=== PATIENT | female | born 1945 | race African-American/Black ===

== ENCOUNTER 2019-02-11 14:54 | Observation (INO) ==
[2019-02-11 16:15] LABS: Basophils # 0.1 10*3/uL (0.0-0.2); Basophils % 0.7 % (0.0-0.8); Eosinophils # 0.3 10*3/uL (0.0-0.87); Hematocrit 36.6 VOL% (35.7-47.0); Hemoglobin 10.6 GM/DL (12.0-16.0); Immature Granulocytes % 0.6 %; Immature Granulocytes Absolute 0.05 #; Lymphocytes # 2.9 10*3/uL (1.4-4.0); Lymphocytes % 32.7 % (21.3-54.2); Mean Corpuscular Volume 82.1 FL (87-102); Mean Platelet Volume 12.2 FL (9.6-12.0); Monocytes % 4.4 % (1.7-12.7); Neutrophils % 58.6 % (38.7-73.9); Platelet Count 190 T/CUMM (130-400); Red Blood Count 4.46 MC/CUMM (3.8-5.5); Red Cell Distribution Width 14.6 % (9.3-17.3); White Blood Count 8.8 T/CUMM (4-12)
[2019-02-11 16:41] LABS: Alanine Aminotransferase 14 U/L (13-56); Albumin 3.5 G/DL (3.4-5.0); Alkaline Phosphatase 142 U/L (45-117); Aspartate Amino Transferase 7 U/L (0-37); Bilirubin,Total < 0.39 MG/DL (0.2-1.0); Blood Urea Nitrogen 39 MG/DL (7-18); Calcium 8.5 MG/DL (8.5-10.1); Glucose 387 MG/DL (74-106); Osmolality,Calculated 297.8 MOS/KG (273-304); Total Protein 6.9 G/DL (6.4-8.3)
[2019-02-11] MEDS ORDERED: ASPIRIN 325 MG TABLET PO STA (18:15)
[2019-02-11] MEDS ORDERED: ONDANSETRON 4 MG/2 ML VIAL IV STA (18:15)
[2019-02-11] MEDS ORDERED: ALUM/MAG/SIMETH/LIDO VISC 1:1 30 ML BOTTLE PO STA (18:15)
[2019-02-11] MEDS ORDERED: INSULIN REGULAR 100 UNIT/ML SUBCUT STA (19:30)
[2019-02-11] MEDS ORDERED: DEXTROSE 50% 25 GM/50 ML SYRINGE IV PRN (20:48)
[2019-02-11] MEDS ORDERED: ZALEPLON 5 MG CAPSULE PO PRN (20:48)
[2019-02-11] MEDS ORDERED: ONDANSETRON 4 MG/2 ML VIAL IV PRN (20:48)
[2019-02-11] MEDS ORDERED: ACETAMINOPHEN 325 MG TABLET PO PRN (20:48)
[2019-02-11] MEDS ORDERED: GLUCAGON 1 MG VIAL IM PRN (20:48)
[2019-02-11] MEDS ORDERED: DOCUSATE SODIUM 100 MG CAPSULE PO PRN (20:48)
[2019-02-11] MEDS ORDERED: MORPHINE 4 MG/1 ML VIAL IV PRN (20:48)
[2019-02-11] MEDS: INSULIN LISPRO 100 UNIT/ML SUBCUT SCH (22:44)
[2019-02-11] MEDS: ENOXAPARIN 30 MG/0.3 ML SYRINGE SUBCUT SCH (22:44)
[2019-02-12 04:31] LABS: Basophils # 0.1 10*3/uL (0.0-0.2); Basophils % 0.6 % (0.0-0.8); Eosinophils # 0.3 10*3/uL (0.0-0.87); Eosinophils % 3.5 % (0.00-10.9); Immature Granulocytes % 0.3 %; Immature Granulocytes Absolute 0.02 #; Lymphocytes # 3.6 10*3/uL (1.4-4.0); Lymphocytes % 45.1 % (21.3-54.2); Mean Corpuscular HGB Conc 28.8 GM/DL (32-36); Mean Corpuscular Volume 80.8 FL (87-102); Mean Platelet Volume 11.8 FL (9.6-12.0); Monocytes % 5.2 % (1.7-12.7); Neutrophils % 45.3 % (38.7-73.9); Platelet Count 173 T/CUMM (130-400); Red Blood Count 4.21 MC/CUMM (3.8-5.5); Red Cell Distribution Width 14.5 % (9.3-17.3)
[2019-02-12 04:48] LABS: Hematocrit 32.9 VOL% (35.7-47.0); Hemoglobin 9.9 GM/DL (12.0-16.0)
[2019-02-12 04:57] LABS: Hypochromasia 1+; Ovalocytes Slight
[2019-02-12 04:58] LABS: Platelet Estimate Adequate
[2019-02-12 05:10] LABS: Calcium 8.4 MG/DL (8.5-10.1); Osmolality,Calculated 291.3 MOS/KG (273-304); Risk Ratio 4.18; Thyroid Stimulating Hormone 2.12 uIU/ml (0.358-3.74); VLDL CHOLESTEROL 31.6 MG/DL
[2019-02-12] MEDS: INSULIN LISPRO 100 UNIT/ML SUBCUT SCH ×4 (07:36→22:11)
[2019-02-12] MEDS: PANTOPRAZOLE 40 MG TABLET PO SCH (08:15)
[2019-02-12] MEDS: CETIRIZINE 10 MG TABLET PO SCH (08:15)
[2019-02-12] MEDS ORDERED: LISINOPRIL/HCTZ 20-25 MG TABLET PO SCH (09:00)
[2019-02-12] MEDS ORDERED: SIMVASTATIN 10 MG TABLET PO SCH (09:00)
[2019-02-12] MEDS ORDERED: SIMVASTATIN 20 MG TABLET PO SCH (10:00)
[2019-02-12] MEDS: ASPIRIN EC 81 MG TABLET PO SCH (10:29)
[2019-02-12] MEDS ORDERED: SODIUM POLYSTYRENE SULFATE 15 GM/60 ML BOTTLE PO STA (11:27)
[2019-02-12] MEDS: NITROGLYCERIN SL 0.4 MG TABLET SL PRN ×2 (11:52→11:58)
[2019-02-12 15:03] LABS: Apearance,Urine Slightly Hazy (Clear); Bacteria,Urine Occasional /HPF (Few); Bilirubin,Urine Negative (Negative); Blood, Urine Negative (Negative); Glucose,Urine (UA) Negative (Negative); Hyaline Casts,Urine 1 /LPF (0-3); Ketones,Urine Negative (Negative); Mucus,Urine Occasional /LPF (Occasional); Nitrite,Urine Negative (Negative); Protein,Urine Negative; RBC,Urine 1 /HPF (0-4); Squamous Epithelial Cell,Urine Occasional /HPF (0-10); Urine Color Yellow (Yellow); Urine Specific Gravity 1.014 (1.001-1.035); Urine Urobilinogen < 2.0 EU/DL (0.2-1.0); WBC,Urine 4 /HPF (0-6)
[2019-02-12] MEDS ORDERED: SODIUM POLYSTYRENE SULFATE 15 GM/60 ML BOTTLE PO ONE (17:26)
[2019-02-12] MEDS ORDERED: INSULIN REGULAR 100 UNIT/ML IV ONE (17:31)
[2019-02-12] MEDS ORDERED: DEXTROSE 50% 25 GM/50 ML SYRINGE IV ONE (17:35)
[2019-02-12] MEDS ORDERED: CALCIUM GLUCONATE 1,000 MG in SODIUM CHLORIDE 0.9% 100 ML IV ONE (17:35)
[2019-02-12] MEDS: ENOXAPARIN 30 MG/0.3 ML SYRINGE SUBCUT SCH (21:09)
[2019-02-13] MEDS: INSULIN LISPRO 100 UNIT/ML SUBCUT SCH ×2 (07:56→13:01)
[2019-02-13] MEDS: PANTOPRAZOLE 40 MG TABLET PO SCH (08:47)
[2019-02-13] MEDS: CETIRIZINE 10 MG TABLET PO SCH (08:47)
[2019-02-13] MEDS: ASPIRIN EC 81 MG TABLET PO SCH (08:47)
[2019-02-13] MEDS ORDERED: SIMVASTATIN 20 MG TABLET PO SCH (09:00)
[2019-02-13 09:08] LABS: Calcium 8.5 MG/DL (8.5-10.1); Osmolality,Calculated 294.3 MOS/KG (273-304)
[2019-02-13 09:19] LABS: Basophils % 0.4 % (0.0-0.8); Eosinophils # 0.3 10*3/uL (0.0-0.87); Eosinophils % 3.8 % (0.00-10.9); Hematocrit 35.5 VOL% (35.7-47.0); Hemoglobin 10.3 GM/DL (12.0-16.0); Immature Granulocytes % 0.4 %; Immature Granulocytes Absolute 0.03 #; Lymphocytes % 39.9 % (21.3-54.2); Mean Corpuscular Volume 81.4 FL (87-102); Mean Platelet Volume 12.1 FL (9.6-12.0); Monocytes % 5.2 % (1.7-12.7); Neutrophils % 50.3 % (38.7-73.9); Platelet Count 193 T/CUMM (130-400); Red Blood Count 4.36 MC/CUMM (3.8-5.5); Red Cell Distribution Width 14.6 % (9.3-17.3); White Blood Count 7.4 T/CUMM (4-12)
[2019-02-13 12:11] VITALS: BP 124/64
== END 2019-02-13 13:05 | disposition home or self-care (01) ==
LOC: N.EDINP 14:54 → N.ED 14:54 → N.4E 21:36
PROVIDERS: ADMIT Internal Medicine; ATTEND Internal Medicine

== ENCOUNTER 2019-02-17 09:34 | Inpatient (IN) ==
[2019-02-17] MEDS ORDERED: NITROGLYCERIN SL 0.4 MG TABLET SL PRN (10:10)
[2019-02-17] MEDS ORDERED: ASPIRIN 325 MG TABLET PO STA (10:10)
[2019-02-17] MEDS ORDERED: ENOXAPARIN 80 MG/0.8 ML SYRINGE SUBCUT ONE (10:10)
[2019-02-17] MEDS ORDERED: ASPIRIN 325 MG TABLET ONE (10:10)
[2019-02-17] MEDS ORDERED: HEPARIN/NACL 0.9% 2 UNITS/ML 1,000 ML IV ONE (10:10)
[2019-02-17] MEDS ORDERED: ENOXAPARIN 100 MG/ML SYRINGE SUBCUT STA (10:10)
[2019-02-17] MEDS ORDERED: LIDOCAINE 1% 20 ML VIAL ONE (10:10)
[2019-02-17 10:20] LABS: Basophils # 0.1 10*3/uL (0.0-0.2); Basophils % 0.4 % (0.0-0.8); Eosinophils # 0.3 10*3/uL (0.0-0.87); Eosinophils % 1.9 % (0.00-10.9); Hematocrit 35.1 VOL% (35.7-47.0); Hemoglobin 10.5 GM/DL (12.0-16.0); Immature Granulocytes % 0.3 %; Immature Granulocytes Absolute 0.05 #; Lymphocytes # 5.2 10*3/uL (1.4-4.0); Lymphocytes % 36.2 % (21.3-54.2); Mean Corpuscular HGB Conc 29.9 GM/DL (32-36); Mean Corpuscular Volume 80.3 FL (87-102); Mean Platelet Volume 11.8 FL (9.6-12.0); Monocytes % 4.4 % (1.7-12.7); Neutrophils % 56.8 % (38.7-73.9); Platelet Count 243 T/CUMM (130-400); Red Blood Count 4.37 MC/CUMM (3.8-5.5); Red Cell Distribution Width 14.7 % (9.3-17.3); White Blood Count 14.3 T/CUMM (4-12)
[2019-02-17] MEDS ORDERED: HEPARIN/NACL 0.9% 2 UNITS/ML 500 ML IV ONE ×2 (10:29→11:22)
[2019-02-17] MEDS ORDERED: ZALEPLON 5 MG CAPSULE PO PRN (10:30)
[2019-02-17] MEDS ORDERED: POTASSIUM CHLORIDE 20 MEQ TABLET PO PRN (10:30)
[2019-02-17] MEDS ORDERED: MAGNESIUM SULF RIDER 4 GM in PREMIX 1 EACH IV PRN (10:30)
[2019-02-17] MEDS ORDERED: MAGNESIUM SULF RIDER 2 GM in PREMIX 1 EACH IV PRN (10:30)
[2019-02-17] MEDS ORDERED: DOCUSATE SODIUM 100 MG CAPSULE PO PRN (10:30)
[2019-02-17 10:38] LABS: Alanine Aminotransferase 17 U/L (13-56); Albumin 3.8 G/DL (3.4-5.0); Alkaline Phosphatase 131 U/L (45-117); Aspartate Amino Transferase 10 U/L (0-37); Bilirubin,Total < 0.39 MG/DL (0.2-1.0); Blood Urea Nitrogen 32 MG/DL (7-18); Calcium 9.4 MG/DL (8.5-10.1); Glucose 256 MG/DL (74-106); Osmolality,Calculated 296.3 MOS/KG (273-304); Total Protein 6.8 G/DL (6.4-8.3)
[2019-02-17] MEDS ORDERED: TIROFIBAN 5,000 MCG/100 ML PREMIX IV ONE (10:39)
[2019-02-17] MEDS ORDERED: TIROFIBAN 5,000 MCG/100 ML PREMIX IV SCH (10:46)
[2019-02-17] MEDS ORDERED: HYDROmorphone 2 MG/1 ML VIAL ONE (11:02)
[2019-02-17] MEDS ORDERED: TICAGRELOR 90 MG TABLET ONE (11:45)
[2019-02-17] MEDS ORDERED: ACETAMINOPHEN 325 MG TABLET PO PRN (11:51)
[2019-02-17] MEDS ORDERED: CARVEDILOL 6.25 MG TABLET PO SCH (13:00)
[2019-02-17] MEDS: SODIUM CHLORIDE 0.45% 1,000 ML IV SCH ×3 (13:32→21:32)
[2019-02-17] MEDS: ONDANSETRON 4 MG/2 ML VIAL IV PRN (13:36)
[2019-02-17 14:51] LABS: Apearance,Urine CLEAR (Clear); Bilirubin,Urine Negative (Negative); Blood, Urine Small mg/dL (Negative); Glucose,Urine (UA) >=500 mg/dL (Negative); Ketones,Urine Negative (Negative); Nitrite,Urine Negative (Negative); Protein,Urine Negative; RBC,Urine 2 /HPF (0-4); Squamous Epithelial Cell,Urine Occasional /HPF (0-10); Urine Color Straw (Yellow); Urine Specific Gravity 1.046 (1.001-1.035); Urine Urobilinogen < 2.0 EU/DL (0.2-1.0); WBC,Urine <1 /HPF (0-6)
[2019-02-17] MEDS: MORPHINE 4 MG/1 ML VIAL IV PRN (17:35)
[2019-02-17] MEDS ORDERED: CARVEDILOL 12.5 MG TABLET PO SCH (17:58)
[2019-02-17] MEDS: TICAGRELOR 90 MG TABLET PO SCH (20:15)
[2019-02-17] MEDS: ROSUVASTATIN 20 MG TABLET PO SCH (20:15)
[2019-02-17 20:34] LABS: CKMB % 9.5 %
[2019-02-17 20:37] LABS: Troponin I 42.2 NG/ML (0.00-0.045)
[2019-02-18 02:44] LABS: Basophils % 0.2 % (0.0-0.8); Eosinophils % 0.1 % (0.00-10.9); Hematocrit 33.3 VOL% (35.7-47.0); Immature Granulocytes % 0.3 %; Immature Granulocytes Absolute 0.04 #; Lymphocytes # 2.1 10*3/uL (1.4-4.0); Lymphocytes % 16.4 % (21.3-54.2); Mean Corpuscular Volume 78.9 FL (87-102); Mean Platelet Volume 11.4 FL (9.6-12.0); Monocytes % 5.8 % (1.7-12.7); Neutrophils % 77.2 % (38.7-73.9); Platelet Count 230 T/CUMM (130-400); Red Blood Count 4.22 MC/CUMM (3.8-5.5); Red Cell Distribution Width 14.5 % (9.3-17.3); White Blood Count 12.5 T/CUMM (4-12)
[2019-02-18] MEDS: SODIUM CHLORIDE 0.45% 1,000 ML IV SCH ×4 (03:16→22:31)
[2019-02-18 03:32] LABS: Calcium 8.6 MG/DL (8.5-10.1); Osmolality,Calculated 283.1 MOS/KG (273-304); Risk Ratio 3.6; VLDL CHOLESTEROL 28.2 MG/DL
[2019-02-18 03:50] LABS: CKMB % 12.7 %
[2019-02-18 03:51] LABS: Troponin I 72.1 NG/ML (0.00-0.045)
[2019-02-18] MEDS: ONDANSETRON 4 MG/2 ML VIAL IV PRN ×4 (05:45→17:31)
[2019-02-18] MEDS: MORPHINE 4 MG/1 ML VIAL IV PRN (05:45)
[2019-02-18] MEDS ORDERED: SODIUM POLYSTYRENE SULFATE 15 GM/60 ML BOTTLE PO STA ×2 (05:49→14:28)
[2019-02-18] MEDS ORDERED: ASPIRIN EC 325 MG TABLET PO SCH (09:00)
[2019-02-18] MEDS ORDERED: ENOXAPARIN 30 MG/0.3 ML SYRINGE SUBCUT SCH (09:00)
[2019-02-18] MEDS ORDERED: ASPIRIN CHEW 81 MG TABLET PO ONE (09:32)
[2019-02-18] MEDS: CETIRIZINE 10 MG TABLET PO SCH (09:42)
[2019-02-18] MEDS: TICAGRELOR 90 MG TABLET PO SCH ×2 (09:43→21:00)
[2019-02-18] MEDS: sitaGLIPtin 100 MG TABLET PO SCH (09:43)
[2019-02-18] MEDS: PANTOPRAZOLE 40 MG TABLET PO SCH (09:43)
[2019-02-18] MEDS: CARVEDILOL 25 MG TABLET PO SCH ×2 (09:43→21:00)
[2019-02-18] MEDS: ROSUVASTATIN 20 MG TABLET PO SCH (21:00)
[2019-02-19 05:25] LABS: Calcium 8.1 MG/DL (8.5-10.1); Osmolality,Calculated 273.5 MOS/KG (273-304)
[2019-02-19] MEDS: ASPIRIN EC 81 MG TABLET PO SCH (09:43)
[2019-02-19] MEDS: sitaGLIPtin 100 MG TABLET PO SCH (09:44)
[2019-02-19] MEDS: hydrALAZINE 10 MG TABLET PO SCH ×3 (09:44→21:38)
[2019-02-19] MEDS: PANTOPRAZOLE 40 MG TABLET PO SCH (09:44)
[2019-02-19] MEDS: CARVEDILOL 25 MG TABLET PO SCH ×2 (09:44→21:38)
[2019-02-19] MEDS: FUROSEMIDE 40 MG TABLET PO SCH (09:44)
[2019-02-19] MEDS: TICAGRELOR 90 MG TABLET PO SCH ×2 (09:45→21:38)
[2019-02-19] MEDS: CETIRIZINE 10 MG TABLET PO SCH (09:45)
[2019-02-19] MEDS: SODIUM CHLORIDE 0.45% 1,000 ML IV SCH (09:53)
[2019-02-19] MEDS: ROSUVASTATIN 20 MG TABLET PO SCH (21:38)
[2019-02-20 04:00] LABS: Calcium 8.2 MG/DL (8.5-10.1)
[2019-02-20] MEDS: ASPIRIN EC 81 MG TABLET PO SCH (08:57)
[2019-02-20] MEDS: FUROSEMIDE 40 MG TABLET PO SCH (08:57)
[2019-02-20] MEDS: TICAGRELOR 90 MG TABLET PO SCH ×2 (08:57→21:07)
[2019-02-20] MEDS: CARVEDILOL 25 MG TABLET PO SCH ×2 (08:57→21:07)
[2019-02-20] MEDS: PANTOPRAZOLE 40 MG TABLET PO SCH (08:57)
[2019-02-20] MEDS: hydrALAZINE 10 MG TABLET PO SCH ×4 (08:57→21:07)
[2019-02-20] MEDS: CETIRIZINE 10 MG TABLET PO SCH (08:57)
[2019-02-20] MEDS: sitaGLIPtin 100 MG TABLET PO SCH (08:57)
[2019-02-20] MEDS ORDERED: DEXTROSE 50% 25 GM/50 ML SYRINGE IV PRN (10:12)
[2019-02-20] MEDS ORDERED: GLUCAGON 1 MG VIAL IM PRN (10:12)
[2019-02-20] MEDS: SODIUM CHLORIDE 0.9% 1,000 ML IV SCH (11:21)
[2019-02-20] MEDS: INSULIN REGULAR 100 UNIT/ML SUBCUT SCH ×3 (12:00→21:08)
[2019-02-20] MEDS: ROSUVASTATIN 20 MG TABLET PO SCH (21:07)
[2019-02-21 05:58] LABS: Calcium 7.7 MG/DL (8.5-10.1); Osmolality,Calculated 287.5 MOS/KG (273-304)
[2019-02-21 06:21] LABS: Basophils % 0.4 % (0.0-0.8); Eosinophils # 0.3 10*3/uL (0.0-0.87); Eosinophils % 2.8 % (0.00-10.9); Hematocrit 24.7 VOL% (35.7-47.0); Immature Granulocytes % 0.4 %; Immature Granulocytes Absolute 0.04 #; Lymphocytes # 2.3 10*3/uL (1.4-4.0); Lymphocytes % 26.2 % (21.3-54.2); Mean Corpuscular HGB Conc 30.8 GM/DL (32-36); Mean Corpuscular Volume 77.9 FL (87-102); Mean Platelet Volume 11.7 FL (9.6-12.0); Monocytes % 6.3 % (1.7-12.7); Neutrophils % 63.9 % (38.7-73.9); Platelet Count 189 T/CUMM (130-400); Red Blood Count 3.17 MC/CUMM (3.8-5.5); Red Cell Distribution Width 13.9 % (9.3-17.3); White Blood Count 8.9 T/CUMM (4-12)
[2019-02-21 06:22] LABS: Hemoglobin 7.6 GM/DL (12.0-16.0)
[2019-02-21] MEDS: SODIUM CHLORIDE 0.9% 1,000 ML IV SCH (08:32)
[2019-02-21] MEDS: INSULIN REGULAR 100 UNIT/ML SUBCUT SCH ×4 (08:32→20:31)
[2019-02-21] MEDS: sitaGLIPtin 100 MG TABLET PO SCH (08:33)
[2019-02-21] MEDS: FUROSEMIDE 40 MG TABLET PO SCH (08:33)
[2019-02-21] MEDS: CARVEDILOL 25 MG TABLET PO SCH ×2 (08:33→20:29)
[2019-02-21] MEDS: hydrALAZINE 10 MG TABLET PO SCH ×4 (08:33→20:29)
[2019-02-21] MEDS: CETIRIZINE 10 MG TABLET PO SCH (08:33)
[2019-02-21] MEDS: TICAGRELOR 90 MG TABLET PO SCH ×2 (08:33→20:29)
[2019-02-21] MEDS: PANTOPRAZOLE 40 MG TABLET PO SCH (08:33)
[2019-02-21] MEDS: ASPIRIN EC 81 MG TABLET PO SCH (08:34)
[2019-02-21] MEDS: FERROUS SULFATE 325 MG TABLET PO SCH ×2 (15:50→20:29)
[2019-02-21 16:26] LABS: Basophils % 0.4 % (0.0-0.8); Eosinophils # 0.3 10*3/uL (0.0-0.87); Eosinophils % 3.1 % (0.00-10.9); Hematocrit 26.2 VOL% (35.7-47.0); Immature Granulocytes % 0.4 %; Immature Granulocytes Absolute 0.04 #; Lymphocytes # 2.1 10*3/uL (1.4-4.0); Lymphocytes % 23.8 % (21.3-54.2); Mean Corpuscular HGB Conc 30.5 GM/DL (32-36); Mean Corpuscular Volume 78.4 FL (87-102); Mean Platelet Volume 12.1 FL (9.6-12.0); Monocytes % 5.9 % (1.7-12.7); Neutrophils % 66.4 % (38.7-73.9); Platelet Count 202 T/CUMM (130-400); Red Blood Count 3.34 MC/CUMM (3.8-5.5); Red Cell Distribution Width 13.9 % (9.3-17.3)
[2019-02-21] MEDS: ROSUVASTATIN 20 MG TABLET PO SCH (20:29)
[2019-02-22] MEDS: SODIUM CHLORIDE 0.9% 1,000 ML IV SCH ×2 (02:33→22:36)
[2019-02-22 05:43] LABS: Basophils % 0.2 % (0.0-0.8); Eosinophils # 0.3 10*3/uL (0.0-0.87); Eosinophils % 2.8 % (0.00-10.9); Hematocrit 24.9 VOL% (35.7-47.0); Hemoglobin 7.6 GM/DL (12.0-16.0); Immature Granulocytes % 0.4 %; Immature Granulocytes Absolute 0.04 #; Lymphocytes # 1.9 10*3/uL (1.4-4.0); Lymphocytes % 20.5 % (21.3-54.2); Mean Corpuscular HGB Conc 30.5 GM/DL (32-36); Mean Corpuscular Volume 77.8 FL (87-102); Mean Platelet Volume 11.6 FL (9.6-12.0); Monocytes % 6.4 % (1.7-12.7); Neutrophils % 69.7 % (38.7-73.9); Platelet Count 213 T/CUMM (130-400); Red Cell Distribution Width 13.7 % (9.3-17.3); White Blood Count 9.2 T/CUMM (4-12)
[2019-02-22 06:01] LABS: Osmolality,Calculated 288.5 MOS/KG (273-304)
[2019-02-22] MEDS: INSULIN REGULAR 100 UNIT/ML SUBCUT SCH ×4 (08:45→21:55)
[2019-02-22] MEDS: TICAGRELOR 90 MG TABLET PO SCH ×2 (09:25→21:56)
[2019-02-22] MEDS: ASPIRIN EC 81 MG TABLET PO SCH (09:25)
[2019-02-22] MEDS: FERROUS SULFATE 325 MG TABLET PO SCH ×3 (09:25→21:56)
[2019-02-22] MEDS: hydrALAZINE 10 MG TABLET PO SCH ×3 (09:26→21:56)
[2019-02-22] MEDS: CARVEDILOL 25 MG TABLET PO SCH ×2 (09:26→21:57)
[2019-02-22] MEDS: CETIRIZINE 10 MG TABLET PO SCH (09:26)
[2019-02-22] MEDS: sitaGLIPtin 100 MG TABLET PO SCH (09:26)
[2019-02-22] MEDS: PANTOPRAZOLE 40 MG TABLET PO SCH (09:26)
[2019-02-22] MEDS: POLYETHYLENE GLYCOL POWDER 17 GM PACK PO SCH (12:03)
[2019-02-22] MEDS: ROSUVASTATIN 20 MG TABLET PO SCH (21:56)
[2019-02-23 04:38] LABS: Basophils % 0.2 % (0.0-0.8); Eosinophils # 0.3 10*3/uL (0.0-0.87); Hematocrit 25.2 VOL% (35.7-47.0); Hemoglobin 7.6 GM/DL (12.0-16.0); Immature Granulocytes % 0.5 %; Immature Granulocytes Absolute 0.04 #; Lymphocytes # 1.8 10*3/uL (1.4-4.0); Lymphocytes % 21.3 % (21.3-54.2); Mean Corpuscular HGB Conc 30.2 GM/DL (32-36); Mean Platelet Volume 11.9 FL (9.6-12.0); Monocytes % 6.2 % (1.7-12.7); Neutrophils % 68.8 % (38.7-73.9); Platelet Count 228 T/CUMM (130-400); Red Blood Count 3.19 MC/CUMM (3.8-5.5); Red Cell Distribution Width 13.7 % (9.3-17.3); White Blood Count 8.4 T/CUMM (4-12)
[2019-02-23 04:45] LABS: Calcium 8.2 MG/DL (8.5-10.1); Osmolality,Calculated 289.4 MOS/KG (273-304)
[2019-02-23] MEDS ORDERED: MAGNESIUM SULF RIDER 2 GM in PREMIX 1 EACH IV ONE (07:56)
[2019-02-23] MEDS: INSULIN REGULAR 100 UNIT/ML SUBCUT SCH ×4 (08:10→21:29)
[2019-02-23] MEDS ORDERED: SODIUM CHLORIDE 0.9% 1,000 ML IV PRN (08:17)
[2019-02-23] MEDS: POLYETHYLENE GLYCOL POWDER 17 GM PACK PO SCH (08:55)
[2019-02-23] MEDS: hydrALAZINE 10 MG TABLET PO SCH ×3 (08:56→21:27)
[2019-02-23] MEDS: TICAGRELOR 90 MG TABLET PO SCH ×2 (08:56→21:26)
[2019-02-23] MEDS: sitaGLIPtin 100 MG TABLET PO SCH (08:56)
[2019-02-23] MEDS: PANTOPRAZOLE 40 MG TABLET PO SCH (08:56)
[2019-02-23] MEDS: ASPIRIN EC 81 MG TABLET PO SCH (08:56)
[2019-02-23] MEDS: CARVEDILOL 25 MG TABLET PO SCH ×2 (08:56→21:27)
[2019-02-23] MEDS: CETIRIZINE 10 MG TABLET PO SCH (08:57)
[2019-02-23] MEDS: FERROUS SULFATE 325 MG TABLET PO SCH ×3 (08:57→21:27)
[2019-02-23] MEDS ORDERED: FUROSEMIDE 40 MG/4 ML VIAL IV ONE (12:45)
[2019-02-23] MEDS: SODIUM CHLORIDE 0.9% 1,000 ML IV SCH (17:38)
[2019-02-23 17:58] LABS: Hematocrit 33.6 VOL% (35.7-47.0)
[2019-02-23 17:59] LABS: Hemoglobin 10.3 GM/DL (12.0-16.0)
[2019-02-23] MEDS: ROSUVASTATIN 20 MG TABLET PO SCH (21:26)
[2019-02-24 05:03] LABS: Basophils % 0.3 % (0.0-0.8); Eosinophils # 0.3 10*3/uL (0.0-0.87); Eosinophils % 3.1 % (0.00-10.9); Hematocrit 32.1 VOL% (35.7-47.0); Hemoglobin 10.2 GM/DL (12.0-16.0); Immature Granulocytes % 0.6 %; Immature Granulocytes Absolute 0.05 #; Lymphocytes # 1.8 10*3/uL (1.4-4.0); Lymphocytes % 20.8 % (21.3-54.2); Mean Corpuscular HGB Conc 31.8 GM/DL (32-36); Mean Corpuscular Volume 79.7 FL (87-102); Mean Platelet Volume 12.1 FL (9.6-12.0); Monocytes % 6.5 % (1.7-12.7); Neutrophils % 68.7 % (38.7-73.9); Platelet Count 232 T/CUMM (130-400); Red Blood Count 4.03 MC/CUMM (3.8-5.5); Red Cell Distribution Width 15.2 % (9.3-17.3); White Blood Count 8.7 T/CUMM (4-12)
[2019-02-24 05:27] LABS: Calcium 8.8 MG/DL (8.5-10.1); Osmolality,Calculated 284.5 MOS/KG (273-304)
[2019-02-24] MEDS: INSULIN REGULAR 100 UNIT/ML SUBCUT SCH (08:06)
[2019-02-24] MEDS: TICAGRELOR 90 MG TABLET PO SCH (10:03)
[2019-02-24] MEDS: hydrALAZINE 10 MG TABLET PO SCH (10:03)
[2019-02-24] MEDS: ASPIRIN EC 81 MG TABLET PO SCH (10:03)
[2019-02-24] MEDS: PANTOPRAZOLE 40 MG TABLET PO SCH (10:03)
[2019-02-24] MEDS: sitaGLIPtin 100 MG TABLET PO SCH (10:04)
[2019-02-24] MEDS: FERROUS SULFATE 325 MG TABLET PO SCH (10:04)
[2019-02-24] MEDS: POLYETHYLENE GLYCOL POWDER 17 GM PACK PO SCH (10:04)
[2019-02-24] MEDS: CETIRIZINE 10 MG TABLET PO SCH (10:04)
[2019-02-24] MEDS: CARVEDILOL 25 MG TABLET PO SCH (10:04)
[2019-02-24 12:12] VITALS: BP 113/61
== END 2019-02-24 14:15 | disposition swing bed (61) | DRG 246 ==
LOC: N.ED 09:34 → N.ICU 10:12 → N.EDINP 10:30 → N.ICU 12:25 → N.TELES 02-19 14:37
PROVIDERS: ADMIT Internal Medicine Cardiovascular Disease; ATTEND Internal Medicine Cardiovascular Disease
PROC: CLCCHCL (ICD-10-PCS; 2019-02-17 12:15)